=== PATIENT | male | born 1985 | race Two or more races ===

== ENCOUNTER 2024-01-29 03:39 | Emergency (ER) | payer SELFPAY ==
[2024-01-29 03:44] VITALS: BP 122/79; PULSE 76; RESP 18; TEMP 97.9; BMI 27.1
[2024-01-29] MEDS ORDERED: KETOROLAC TROMETHAMINE 15 MG/ML VIAL ONE (04:07)
[2024-01-29] MEDS ORDERED: LIDOCAINE 4% PATCH TP ONE (04:07)
[2024-01-29] MEDS: KETOROLAC TROMETHAMINE 15 MG/ML VIAL IM ONE (04:10)
[2024-01-29] MEDS: LIDOCAINE 4% PATCH TP ONE (04:11)
== END 2024-01-29 04:49 | disposition home or self-care (01) ==
LOC: JER 03:39
PROC: 3E0233Z Introduction of Anti-inflammatory into Muscle, Percutaneous Approach (ICD-10-PCS; principal; 2024-01-29)
DX: M54.42 Lumbago with sciatica, left side (principal); R20.0 Anesthesia of skin; R20.2 Paresthesia of skin
CPT/HCPCS: 99284-25